=== PATIENT | female | born 1990 | race Caucasian/White ===

== ENCOUNTER → 2020-09-13 11:27 | Outpatient (CLI) | payer MEDICAID, SELFPAY ==
[2017-07-08 13:02] VITALS: BMI 26.3
[2020-09-13 14:00] LABS: Hemoglobin 14.2 g/dL (12.0-15.0); Mean Corp Hgb Conc 32.3 g/dL (32-36); Mean Corpuscular Hgb 30.1 pg (27.0-32.0); Mean Corpuscular Volume 93.2 fL (81-99); Mean Platelet Vol. 10.7 fl (6.2-12.0); Platelet Count 339 K/mm3 (150-450); RBC Distribution Width CV 13.8 % (11.6-14.6); RBC Distribution Width SD 47.2 fl (35.1-43.9); Red Blood Count 4.72 M/mm3 (4.2-5.4); White Blood Count 9.3 K/mm3 (4.4-11.0)
[2020-09-13 14:37] LABS: Prolactin 3.4 ng/mL; T4 Free Direct 0.93 ng/dL (0.76-1.46); Thyroid Stim Hormone (TSH) 0.67 uIU/mL (0.358-3.74)
== END ==
PROVIDERS: Visit Provider Obstetrics & Gynecology
DX: N93.9 Abnormal uterine and vaginal bleeding, unspecified (principal)
CPT/HCPCS: 36415; 84146; 84439; 84443; 85027

== ENCOUNTER → 2020-11-17 15:08 | Outpatient (CLI) | payer MEDICAID, SELFPAY ==
[2020-11-17 11:25] VITALS: BP 139/94; PULSE 104; RESP 16; TEMP 37.1; O2SAT 100; BMI 19.6
--- NOTE | 2020-11-17 11:28 | PCM.HP.BLA ---
History and Physical Date of Admission: 11/17/20 Surgical History and Physical Name: MINERVA BENNETT Age: 29 Date of : 1990 Minerva Bennett, a 29 year old female 3 1 2 0 3, presents for Laparoscopic tubal ligation, hysteroscopy D endometrial ablation via Farhana on November 17, 2020 at 8:45. -- Minerva Gomez is here with c/o continuous vag bleeding for months. Pt desires permanent sterilzation and endometrial ablation. All questions answered and consent signed. MEDICATIONS HISTORY: Patient is also takin. No Meds ALLERGIES: NKDA Infections - Chicken pox and RSV at age 3 w. 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 Accidents - fx tailbone age 15, trampoline accident; occas LBP since Hospitalizations - Childbirth Poppy Valve Prolapse; Review of Systems: GENERAL - Denies fever, or chills SKIN - Denies skin changes EYES - wears eye glasses EARS - Denies difficulty hearing NOSE - Denies nasal congestion or bleeding MOUTH - Denies sore throat or difficulty swallowing NECK - Denies pain or swelling RESPIRATORY - Denies shortness of breath or wheezing CARDIOVASCULAR - Denies palpitations or chest pain GASTROINTESTINAL - Denies nausea, vomiting, diarrhea, constipation GENITOURINARY - irregular bleeding MUSCULOSKELETAL - Denies joint or muscle pain NEUROLOGICAL - Denies localized numbness or weakness PSYCHIATRIC - Denies depression or anxiety ENDOCRINE - Denies heat or cold intolerance, weight loss or gain HEMATO-IMMUNOLOGIC - Denies excessive bleeding with cuts SOCIAL HISTORY: Alcohol Use - RARELY not while Smoking - Advised to quit and Smoker since 15. Smokes 1/2 PPD. Was 1 PPD. Diet - balanced Diet, caffeine > 2 drinks per day and water intake near one gal daily Lifestyle - moderate stress lifestyle Exercise - active work and Enc 20 min daily walking without stopping Seat Belt Use - always Employer - homemaker Illicit Drug Use - uses marijuana Sexual Activity - Residence - rent home Place of - [place], [place] Hours Worked - 28-35 Spouse-Sig Other Name - Pablo Bennett Spouse-Sig Other Occupation - [employer] - [employer] Spouse-Sig Other Phone No - [phone] Children Name(s) - Payam (still born February 2013), Carlos (AMS), Zi (EB, 2016), Daniel '17 Control - Depo FAMILY HISTORY: Family history of mental illness, Breast cancer, Lung cancer, Heart Disease and Hypertension. MENSTRUAL HISTORY: LMP Known?- Approximate-Month KnownAmount/Duration - 3-4 DAYS, Regularity - Irregular, LMP - 08/20/20, Age Onset Menarche - 15 PAST PREGNANCIES: Total Pregnancies - 6; Full Term Pregnancies - 3; Premature - 1; Abortions, Induced - 0; Abortions, Spontaneous - 2; Ectopics - 0; Multiple Births - 0; Living Children - 3 SURGICAL HISTORY: 1. 07/03/2016 ; Marissa Mathias M.D. - bradycardia, true knot in cord PHYSICAL EXAM BP- 122/84 Sitting, Right arm, regular cuff Weight- 121.53773 lbs Height- 66 inch BMI:19.57 CONSTITUTIONAL - NAD, well nourished, and well developed SKIN - No rash, lesions, or ulcers HEENT - Normocephalic, PERRLA, EOMI NECK - No nodes, no nuchal rigidity and thyroid normal size and texture LYMPH NODES - Palpation of lymph nodes in neck and groins within normal limits LUNGS - CTA x2 without wheezes, crackles or rales CARDIAC - Regular rate and rhythm without rubs, murmurs, or gallops ABDOMEN - Without hepatosplenomegaly, distention, masses, rebound, or guarding; normal bowel sounds; no hernias EXTREMITIES - No edema or calf tenderness NEUROLOGICAL - Cranial nerves II-XII grossly intact PSYCHIATRIC - A and O to time, place, person, mood and affect External Genital Vagina - non-tender without lesions Urethra/Urethral Meatus - non-tender Bladder - non-tender Vagina - vaginal bryan are pink and moist without loss of rugae and no evidence of atropyh Cervix - without cervical motion tenderness and has normal size and features without evident lesions Uterus - 5-6 cm in size, mobile and nontender Adnexa - clear without masses or tenderness ASSESSMENT/PLAN: 1. Abnormal Uterine And Vaginal Bleeding, Unspecified Pt with periods all month for multiple months. Does not want any further children Labs today, exam wnl. U/s with 8cm x6cm uterus. No other findings Pt educated on options medical vs surgical r/b/a. Pt elects for endometrial ablation and tubal ligation. Tubal consent discussed and signed Pt had Depo 09/2020 Pt for hysteroscopy, D, Farhana, laparoscopic b/l salpingectomy Pt takes no medications Educated on r/b/a, educated on postoperative pain, returning to work, vaginal discharge. All questions answered, consent was signed
[2020-11-17] MEDS: Lactated Ringers 1,000 ML 100 ML IV (11:33)
[2020-11-17 11:34] LABS: Internal QC Validated? YES +Cl - CLEAR BKGD; Pregnancy, Urine Negative Negative
[2020-11-17 11:40] LABS: Hematocrit 42.9 % (37-47); Hemoglobin 14.4 g/dL (12.0-15.0); Mean Corp Hgb Conc 33.6 g/dL (32-36); Mean Corpuscular Hgb 30.3 pg (27.0-32.0); Mean Corpuscular Volume 90.3 fL (81-99); Platelet Count 281 K/mm3 (150-450); RBC Distribution Width SD 46.5 fl (35.1-43.9); Red Blood Count 4.75 M/mm3 (4.2-5.4); White Blood Count 9.1 K/mm3 (4.4-11.0)
--- NOTE | 2020-11-17 12:04 | SUR.PREOP ---
surgery canceled - pt had crakers this am. dr arnold talked with pt
== END ==
PROVIDERS: PCP Obstetrics & Gynecology; Referring Provider Obstetrics & Gynecology; Visit Provider Obstetrics & Gynecology
DX: Z01.818 Encounter for other preprocedural examination (principal); Z20.822 Contact with and (suspected) exposure to COVID-19
CPT/HCPCS: 81025; 85027; 86850; 86900; 86901; 87426; J7120; J2405

== ENCOUNTER → 2022-02-01 | Outpatient (CLI) | payer MEDICAID, SELFPAY ==
[2022-02-05 01:06] LABS: Chlamydia By Nucleic Acid AMP Negative (Negative)
[2022-02-05 09:15] LABS: Gonococcus By Nucleic Acid AMP Negative (Negative)
[2022-02-05 16:10] LABS: HPV APTIMA, High Risk Negative (Negative)
== END | disposition home or self-care (01) ==
LOC: WOBLAB 11:49
PROVIDERS: PCP Obstetrics & Gynecology; Visit Provider Obstetrics & Gynecology
DX: Z34.81 Encounter for supervision of other normal pregnancy, first trimester (principal)
CPT/HCPCS: 87491; 87591; 87624; 88175; G0145

== ENCOUNTER → 2022-08-21 | Outpatient (CLI) | payer MEDICAID, SELFPAY ==
[2022-08-21 11:26] LABS: Absolute Lymphocyte Count 2.16 X10^3/uL (0.83-4.51); Absolute Neutrophil Count 4.7 X10^3/uL (2.0-7.7); Basophil# 0.06 X10^3/uL; Basophil% 0.8 % (0-1); Eosinophil# 0.09 X10^3/uL; Eosinophils% 1.2 % (0-5); Hematocrit 38.4 % (37-47); Hemoglobin 12.9 g/dL (12.0-15.0); Lymphocyte # 2.16 X10^3/ul (0.83-4.51); Lymphocyte % 28.1 % (19-41); Mean Corp Hgb Conc 33.6 g/dL (32-36); Mean Corpuscular Hgb 30.1 pg (27.0-32.0); Mean Corpuscular Volume 89.7 fL (81-99); Mean Platelet Vol. 9.9 fl (6.2-12.0); Monocyte# 0.65 X10^3/uL; Monocyte% 8.5 % (0-10); NRBC Flagged by Analyzer 0 % (0-5); Neutrophil # 4.72 X10^3/uL (2.7-7.7); Neutrophil % 61.3 % (47-70); Platelet Count 286 K/mm3 (150-450); RBC Distribution Width CV 13.9 % (11.6-14.6); RBC Distribution Width SD 45.7 fl (35.1-43.9); Red Blood Count 4.28 M/mm3 (4.2-5.4); White Blood Count 7.7 K/mm3 (4.4-11.0)
[2022-08-21 12:37] LABS: HIV - WCH Non-Reactive (Nonreactive); Hepatitis B Surface Antigen Non-Reactive (Nonreactive); Hepatitis C Antibody Non-Reactive (Nonreactive); Rubella IgG Reactive (Nonreactive); Syphilis Antibodies Non-reactive
[2022-08-22 09:57] LABS: V-Zoster IgG (Immunity) 628 index (Immune >165)
== END | disposition home or self-care (01) ==
LOC: WOBLAB 10:55
PROVIDERS: PCP Nurse Practitioner Family; Visit Provider Obstetrics & Gynecology
DX: Z34.81 Encounter for supervision of other normal pregnancy, first trimester (principal)
CPT/HCPCS: 36415; 85025; 86703; 86762; 86780; 86787; 86803; 87086; 87088; 87340

== ENCOUNTER → 2022-12-13 | Outpatient (CLI) | payer MEDICAID, SELFPAY ==
[2022-12-13 11:43] LABS: Absolute Lymphocyte Count 1.84 X10^3/uL (0.83-4.51); Absolute Neutrophil Count 9.5 X10^3/uL (2.0-7.7); Basophil# 0.04 X10^3/uL; Basophil% 0.3 % (0-1); Eosinophil# 0.13 X10^3/uL; Eosinophils% 1.1 % (0-5); Hematocrit 35.9 % (37-47); Hemoglobin 12.3 g/dL (12.0-15.0); Lymphocyte # 1.84 X10^3/ul (0.83-4.51); Mean Corp Hgb Conc 34.3 g/dL (32-36); Mean Corpuscular Hgb 31.6 pg (27.0-32.0); Mean Corpuscular Volume 92.3 fL (81-99); Mean Platelet Vol. 10.2 fl (6.2-12.0); Monocyte# 0.69 X10^3/uL; Monocyte% 5.6 % (0-10); NRBC Flagged by Analyzer 0 % (0-5); Neutrophil % 77.6 % (47-70); Platelet Count 298 K/mm3 (150-450); RBC Distribution Width CV 13.5 % (11.6-14.6); RBC Distribution Width SD 45.2 fl (35.1-43.9); Red Blood Count 3.89 M/mm3 (4.2-5.4); White Blood Count 12.3 K/mm3 (4.4-11.0)
[2022-12-13 11:52] LABS: Glucose Challenge Gest 1H 50g 102 mg/dL (70-140)
[2022-12-13 12:18] LABS: Syphilis Antibodies Non-reactive
== END | disposition home or self-care (01) ==
LOC: WOBLAB 10:29
PROVIDERS: PCP Nurse Practitioner Family; Visit Provider Obstetrics & Gynecology
DX: Z34.82 Encounter for supervision of other normal pregnancy, second trimester (principal); Z3A.00 Weeks of gestation of pregnancy not specified
CPT/HCPCS: 36415; 82950; 85025; 86780

== ENCOUNTER → 2023-02-21 | Outpatient (CLI) | payer MEDICAID, SELFPAY | END | disposition home or self-care (01) | LOC: LABSPEC 12:00 | PROVIDERS: PCP Nurse Practitioner Family; Visit Provider Obstetrics & Gynecology | DX: Z36.85 Encounter for antenatal screening for Streptococcus B (principal) | CPT/HCPCS: 87081 ==

== ENCOUNTER → 2023-02-28 | Outpatient (CLI) | payer MEDICAID, SELFPAY ==
[2023-02-28 12:21] LABS: Hematocrit 36.8 % (37-47); Hemoglobin 12.3 g/dL (12.0-15.0); Mean Corp Hgb Conc 33.4 g/dL (32-36); Mean Corpuscular Hgb 30.9 pg (27.0-32.0); Mean Corpuscular Volume 92.5 fL (81-99); Mean Platelet Vol. 10.9 fl (6.2-12.0); Platelet Count 311 K/mm3 (150-450); RBC Distribution Width CV 13.5 % (11.6-14.6); RBC Distribution Width SD 46.3 fl (35.1-43.9); Red Blood Count 3.98 M/mm3 (4.2-5.4); White Blood Count 13.7 K/mm3 (4.4-11.0)
== END | disposition home or self-care (01) ==
LOC: WOBLAB 11:15
PROVIDERS: PCP Nurse Practitioner Family; Visit Provider Obstetrics & Gynecology
DX: Z34.83 Encounter for supervision of other normal pregnancy, third trimester (principal); Z3A.00 Weeks of gestation of pregnancy not specified
CPT/HCPCS: 36415; 85027

== ENCOUNTER 2023-03-13 04:50 | Inpatient (IN) | payer MEDICAID, SELFPAY ==
[2023-03-13] VITALS (19 sets, daily range): BP systolic 91–118; BP diastolic 46–83; PULSE 67–96; RESP 16–18; TEMP 35.9–36.6; O2SAT 96–100; BMI 23.8
[2023-03-13] MEDS: Lactated Ringers 1,000 ML 999 ML IV (05:35)
[2023-03-13 05:51] LABS: Absolute Lymphocyte Count 2.38 X10^3/uL (0.83-4.51); Absolute Neutrophil Count 10.1 X10^3/uL (2.0-7.7); Basophil# 0.05 X10^3/uL; Basophil% 0.4 % (0-1); Eosinophil# 0.27 X10^3/uL; Eosinophils% 1.9 % (0-5); Hematocrit 37.9 % (37-47); Hemoglobin 12.5 g/dL (12.0-15.0); Lymphocyte # 2.38 X10^3/ul (0.83-4.51); Lymphocyte % 17.2 % (19-41); Mean Corpuscular Hgb 30.6 pg (27.0-32.0); Mean Corpuscular Volume 92.7 fL (81-99); Mean Platelet Vol. 10.1 fl (6.2-12.0); Monocyte# 0.97 X10^3/uL; NRBC Flagged by Analyzer 0 % (0-5); Neutrophil # 10.08 X10^3/uL (2.7-7.7); Neutrophil % 72.7 % (47-70); Platelet Count 294 K/mm3 (150-450); RBC Distribution Width CV 13.9 % (11.6-14.6); RBC Distribution Width SD 47.2 fl (35.1-43.9); Red Blood Count 4.09 M/mm3 (4.2-5.4); White Blood Count 13.9 K/mm3 (4.4-11.0)
[2023-03-13] MEDS: Acetaminophen 500 MG Tablet 1000 MG PO ×3 (06:04→20:51)
--- NOTE | 2023-03-13 06:38 | PCM.HP.BLA ---
History and Physical Date of Admission: 03/13/23 Chief complaint: Repeat section bilateral tubal ligation History present illness: 32-year-old G8, P4 at 39 weeks and 1 day with JENNIFER 03/19/2023 arrives for repeat section bilateral tubal ligation. Denies headache, vision changes, chest pain, shortness of breath, nausea vomit, right upper quadrant pain. Patient states good movement. is complicated by smoking, history of section, history of IUFD Obstetric history: G1: 35-week male IUFD G2: 38-week male 6 pounds 7 ounces G3: 39-week low transverse section nonreassuring heart tones male 7 pounds 8 ounces G4: 39-week female G5: SAB G6: SAB G7: SAB G8: Current Past medical history: None Medications: vitamin Past surgical history: section Allergies: No known drug allergies Social history: Half pack per day smoker, denies alcohol or drug use Family history: Denies history DVT or PE Review of systems: Besides above pertinent positives a full review of systems was performed and found to be negative Physical exam: Vitals: Blood pressure 108/71 pulse 91 respiratory rate 16 temperature 97.0 ?F SPO2 98% on room air General: Normal-appearing no acute distress HEENT: Normocephalic/atraumatic no cervical and adenopathy Cardiac/respiratory: No use of accessory muscles, nonlabored breathing Abdomen: Soft, nontender, gravid Extremities: No peripheral edema normal peripheral pulses Psych: Normal affect and demeanor nonpressured speech Labs: White blood cell count 13.9 hemoglobin 12.5 hematocrit 37.9% platelets 294. Blood type a positive antibody negative Assessment and plan: 32-year-old G8, P4 at 39 weeks and 1 day for repeat section bilateral tubal ligation. Patient understands risk of the procedure include but are not limited to visceral or vascular injury, prolonged hospitalization, blood loss need for transfusion, reoperation. Patient state understanding wish to proceed. All questions were answered and consent was signed. For repeat section bilateral tubal ligation now. 2 g Ancef preop
[2023-03-13] MEDS: Lactated Ringers 1,000 ML 150 ML IV (06:49)
[2023-03-13] MEDS: Sodium Citrate/Citric Acid 30 ML UDC PO (07:01)
[2023-03-13] MEDS: Cefazolin 2 GM in 0.9% Normal Saline 100 ML IV (07:06)
--- NOTE | 2023-03-13 07:28 | FALS_PTH ---
PATIENT: MINERVA BENNETT LOC: WP U#:[id number] AGE/SX: ROOM: WP008 RE03/13/[address]: Dr. Guerrero Evans MD : 1990 BED: 1 DIS: 03/14/2023 SPEC #: [id number] RECD: 03/13/23 09:08 STATUS: SALAZAR REVeronica #: [id number] BROOKE: 03/13/23 07:[address]: Guerrero Evans DEPT: SURGICAL PATHOLOGY RECD BY: Carito Mayne ENTERED: 03/13/23 10:56 SP TYPE: FALL TUBES OTHR DR: Isabel Mckeon, STRAW HAT PLUNGER OPERATOR-C Tissues: Fallopian tube Procedures: Surgery Specimen Level II HEADER OPERATION: Tubal ligation PRE-OP DIAGNOSIS: Sterilization TISSUE SUBMITTED: Fallopian tubes MICROSCOPIC DIAGNOSIS Bilateral fallopian tubes, salpingectomy: Bilateral fallopian tubes, no pathologic diagnosis. PEG:luiza 03/14/2023 MICROSCOPIC DESCRIPTION Slides are reviewed. GROSS DESCRIPTION Received in fixative is one container labeled with the patient's name and designated bilateral fallopian tubes, suture on right. The specimen consists of bilateral fallopian tubes including fimbrial ends measuring 6.5 cm in length and 0.6 cm in diameter and left fallopian tube measures 8.0 cm in length and 0.5 cm in diameter. Sections reveal unremarkable cut surfaces. Siding Coreboard Inspector sections are submitted in two cassettes as follows: 1 - right fallopian tube, 2 - left fallopian tube. / SJ:luiza 03/13/2023 TC:4 CPT: 13339 x2
--- NOTE | 2023-03-13 07:57 | EX.PCM.OBRPT ---
Details Operative Information Date of Procedure: 03/13/23 Pre-Operative Diagnosis: Term, history of section, desires permanent sterilization Post-Operative Diagnosis: Term, history of section, desires permanent sterilization remediation consultant #1: Emanuel Riojas Findings Description of Procedure: Procedure: Repeat low transverse section via Pfannenstiel incision, bilateral salpingectomy Surgeon: Guerrero Evans MD Anesthesia: Spinal EBL: 600 cc Urine output: 500 cc IV fluids: 1000 cc Complications: None Specimen: Bilateral fallopian tubes Findings: Female infant in vertex position Apgars 8/9. Normal uterus, tubes, and ovaries. Consent: Patient with a history of section at term and desires permanent sterilization elects for repeat section Via Pfannenstiel incision and bilateral salpingectomy. Patient understands risk of the procedure include but are not limited to visceral or vascular injury, prolonged hospitalization, blood loss need for transfusion, reoperation. Patient state understanding and wished to proceed. All questions were answered and consent was signed. Procedure: Patient was brought back to the OR where spinal anesthesia was found to be adequate. Patient was repaired and draped in a supine position with leftward tilt. A Pfannenstiel incision was made at the skin with a scalpel. The incision was carried down to the fascia with a scalpel. The fascia was excised and extended laterally. Rectus muscle was dissected bluntly. Rectus muscle was dissected at the midline down to the level of the pubic symphysis. Preperitoneal fat tissue was noted peritoneum was entered bluntly. Peritoneum was extended superiorly and inferiorly with good visualization of bladder. Bladder blade was inserted and vesicouterine peritoneum was identified. Low transverse hysterotomy was made. Hand was placed in the incision and gentle fundal pressure was applied once the head was brought into the incision and the bladder blade was removed. Head and shoulders were delivered with ease. Cord was clamped and cut. Baby handed off to nursing. Placenta was delivered via cord traction and fundal massage. IV oxytocin was initiated in order to facilitate uterine contractions. Uterus was exteriorized and wiped out with dry laparotomy sponge in order to remove remaining placental membranes. Uterus was closed in a continuous running fashion. Hemostasis was achieved with the Bovie. Good hemostasis was noted. Right fallopian tube was identified to the fimbria and the mesosalpinx was cut and cauterized with the LigaSure device, right fallopian tube was transected at the cornua and sent to pathology. Good hemostasis was noted. In similar fashion the left fallopian tube was identified to the fimbria and the mesosalpinx was cut and cauterized with LigaSure device, left loping tube was transected at the cornua and sent to pathology. Good hemostasis was noted bilaterally. Uterus was placed back in the abdominal cavity incision was reinspected, good hemostasis was noted. [place] was placed over the hysterotomy. Good hemostasis was noted. Fascia was closed in a continuous running fashion with PDS suture. Subcutaneous irrigation was performed and hemostasis was achieved with the Bovie. Skin was closed in a subcuticular fashion. Good hemostasis was noted. All counts were correct x2. Patient tolerated procedure well and was brought to recovery in stable condition.
[2023-03-13] MEDS: Oxytocin 15 Units/NS 250ml 15 UNITS/250 ML IV.SOLN 83 UNITS IV (08:15)
[2023-03-13] MEDS: Ketorolac 30 MG/ML Syringe IV ×3 (08:46→20:50)
[2023-03-13 09:07] LABS: Syphilis Antibodies Non-reactive
[2023-03-13 09:08] LABS: Pathology Specimen OB SEE PATHOLOGY REPORT
[2023-03-13] MEDS: Lactated Ringers 1,000 ML 100 ML IV (12:11)
[2023-03-13] MEDS: 0.9% Saline Lock 10 ML Syringe IV ×2 (14:45→20:50)
[2023-03-13] MEDS: SimETHICONE 80 MG Chewable Tablet PO (20:51)
[2023-03-13] MEDS: Enoxaparin 40 MG/0.4 ML Syringe SC (20:51)
[2023-03-14] VITALS: BP 105/71; PULSE 86; RESP 17; TEMP 36.4; O2SAT 97
[2023-03-14 03:00] VITALS: BP 93/52; PULSE 75; RESP 15; TEMP 36.4; O2SAT 100
[2023-03-14] MEDS: Acetaminophen 500 MG Tablet 1000 MG PO ×2 (03:45→10:48)
[2023-03-14] MEDS: Ketorolac 30 MG/ML Syringe IV (03:45)
[2023-03-14] MEDS: 0.9% Saline Lock 10 ML Syringe IV (03:46)
[2023-03-14 05:21] LABS: Hematocrit 32.6 % (37-47); Hemoglobin 10.8 g/dL (12.0-15.0); Mean Corp Hgb Conc 33.1 g/dL (32-36); Mean Corpuscular Hgb 30.9 pg (27.0-32.0); Mean Corpuscular Volume 93.1 fL (81-99); Mean Platelet Vol. 9.9 fl (6.2-12.0); Platelet Count 257 K/mm3 (150-450); RBC Distribution Width CV 13.7 % (11.6-14.6); RBC Distribution Width SD 46.5 fl (35.1-43.9)
--- NOTE | 2023-03-14 07:37 | DCINST_ITS ---
Discharge Instructions Diet Discharge Diet: No restrictions Activity Discharge Activity: Return to Normal Activity, May Drive, May Shower and - (No tub baths for 2 weeks) May resume sexual activity in: 6-8 weeks Lifting Restrictions: No lifting over 25 pounds for 2-3 Dressing / Incision Call your doctor if your incision/area has: Continuous Slow Oozing and Foul Smelling Discharge Call your doctor if you observe: Fever of 101 or Higher, Shortness of breath and Chest pain Follow Up Care Please Follow Up With: Guerrero Evans MD When: 2 weeks postoperatively Test Results: Test results from this visit will be discussed in further detail at your follow- up appointment, if applicable. Discharge Plan Admission Admit Date/Time: 03/13/23 04:50 Attending Provider: Guerrero Evans Primary Care Provider: Isabel Mckeon NP Discharge Orders/Prescriptions Prescriptions: No Action fluoxetine [Prozac] 10 mg Tablet 10 mg PO DAILY Referrals / Follow Up: Isabel Mckeon NP, PACKING MACHINE PILOT CAN ROUTER-C [Primary Care Provider] - Disposition Discharge Orders: Discharge Patient (Routine); Ordered 03/14/23 Ordered By: Dr. Guerrero Evans
--- NOTE | 2023-03-14 07:37 | PCM.PN.OB ---
Subjective Subjective No overnight complaints. Pain well controlled Objective Data Objective Data Vital Signs: Vital Signs Temp Pulse Resp BP Pulse Ox O2 Del Method 97.6 F L 75 15 93/52 L 100 Room Air 03/14/23 03:00 03/14/23 03:00 03/14/23 03:00 03/14/23 03:00 03/14/23 03:00 03/14/23 03:00 Oxygen Delivery Method Room Air Weight: 152 lb Body Mass Index (BMI) 23.8 Intake & Output: Intake and Output for Last 24 Hours 03/12/23 03/13/23 03/14/23 23:59 23:59 23:59 Intake Total 2577.5 / 2577.5 Output Total 1900 / 1900 Balance 677.5 / 677.5 Lab / Micro Data 03/14/23 05:10 Labs: Laboratory Results - last 24 hr 03/13/23 05:35: Syphilis Total Ab Non-reactive 03/14/23 05:10: WBC 15.0 H, RBC 3.50 L, Hgb 10.8 L, Hct 32.6 L, MCV 93.1, MCH 30.9, MCHC 33.1, RDW Std Deviation 46.5 H, RDW Coeff of Stefan 13.7, Plt Count 257, MPV 9.9 Physical Exam Const alert, oriented x3, no apparent distress, average body habitus, healthy appearing and well nourished HEENT normocephalic and moist oral mucous membranes Eyes PERRL Neck full ROM Resp normal respiratory effort, no retractions and no use of accessory muscles GI GI Narrative: Soft, nontender, bandage clean dry and intact Extremity normal to inspection and full ROM Neuro moves all extremities and no focal motor deficits Psych mental status grossly normal, affect normal, speech normal and activity/motor behavior normal Assessment & Plan (1) delivery delivered: PLAN: Postop day 1 status post repeat section bilateral tubal ligation. Pain well controlled. Okay to discharge home today if okay with attendant child activity
[2023-03-14 10:33] VITALS: BP 100/64; PULSE 97; RESP 16; TEMP 36.6; O2SAT 96
[2023-03-14] MEDS: Ibuprofen 600 MG Tablet PO (10:47)
--- NOTE | 2023-03-14 15:20 | CASEMGMT ---
Social Work Assessment Labor and Delivery Unit Patient Address:[address] [place] [address] [address] [id number] Phone number: [phone] Date of Referral: 03/13/23 Time of Referral:? 529 Referred By: Guerrero Evans Date of Intervention: ?03/14/23? Time of Intervention:? 1000 Reason for Referral:? Mental Health- MOB parents former addicts Sw completed chart review and acknowledges social work consult. Sw presented to bedside, introduced self to mother of baby (MOB- Bernadette) and father of baby (FOB- Pablo). Sw explained reason for social work involvement and completed psychosocial assessment with both parents. Sw asked FOB to step out of room momentarily so that MOB could complete the [place] Depression Scale. FOB left room respectfully when necessary. History obtained from: medical records, MOB and FOB??? Household composition: Parents report that currently residing in their home is SLUY, FOB, their three other children (Carlos- 9y/o, Zi- 6y/0 and Briston- 5 y/o) and now baby girl. Parents deny that anyone else lives in the home with them at this time. Patient's parent/guardian status:?MOB and FOB are . MOB states that they have been together for 11 years. Parents state that they were introduced to each other by FOB's nephew and other mutual friends. When meeting with MOB privately she denies any concerns of domestic violence or intimate partner violence. Medical History: SULY is 9, para 3- now 5. MOB states that her first ended in a loss at 38 weeks gestation, however when her baby was born he was measuring to be only 35 weeks. MOB states that she then had [place]. MOB states that when her delivery with her next baby did not go well. MOB states that when she had Zi she had to be intubated for an emergency . MOB states that she is able to recognize now that following his she experienced extreme depression. MOB states that she really struggled at that time to kaiser with baby and depended a lot on FOB to help her. MOB states that then she had Briston and that was a very healing , delivery and overall baby. MOB states that Bristbarbi breast fed well and was a very happy and pleasant baby. Following Briston MOB experienced three miscarriages. MOB states that they were all around 12-13 weeks gestation. MOB states that she had several appointments to have a tubal, however at the last appointment it got cancelled last minute as she was getting prepped due to another delivery emergency. MOB states that it wasn't long after that appointment that she found out she was with this new baby. MOB delivered baby girl via scheduled in order for tubal procedure to be completed at the same time. Baby girl, named Ramos Monique, was born on 03/13/23 at 39 weeks gestation. Ramos weighed only 5lb 11oz and her apgars were 8 and 9 at one and five minutes of life. MOB states that baby is breast feeding well and there are no concerns at this time. Educational Status: MOB states that she completed 11th grade. FOB states that he graduated from high school. Financial Status: BRETT is gainfully employed outside of the home at this time. BRETT works for a [employer] company and states that he is able to take some vacation time now that the baby has been born. 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 MOB states that she is considering doing something different when she is ready to return to work. Infant Supplies:?MOB states that they have obtained all the necessary baby supplies including: car seat, safe sleep space, clothes, diapers, wipes and a breast pump. MOB states that she does not have a lot of preemie clothes, and due to baby being born so small those would fit baby best. Lambert looked at supplies sw has and could not find any clothes that small. Lambert informed bedside RN who stated she would also look for some. Childcare/Caregiver(s):?MOB states that she will be the primary caregiver to baby, with the help of FOB when he is not at work. MOB states that when both parents are working she has family that will be able to watch baby. Transportation:?? Both parents have their drivers license and reliable transportation. No transportation barriers at this time. Programs/Agencies Involved: MOB states that they are over income at this time for financial supports through community agencies. Sw encouraged MOB to look into getting connected to [facility] now that baby has been born. MOB was receptive to this recommendation. ??? Children Services/Legal Issues:??While completing chart review, lambert notes that SULY was involved with children services following the of Zi. MOB identified at that time that she had smoked marijuana during . MOB worked a case plan with them and they closed. No involvement since that time. MOB denies substance use at this time. No need or concerns to make referral to Children Services. ? Behavioral Health Issues: ??Mental Health History:??BRETT denies history of mental health. MOB states that she has not officially been diagnosed with any mental health diagnoses. MOB states that she did experience depression following the of Zi. MOB can identify that her delivery of Zi is not what she expected it to be. MOB states that at that time she was very depressed and did not have desire or interest to do anything. MOB denies SI history or current SI. SULY completed [place] Depression Scale, her score was a 4. Lambert educated SULY on her results and encouraged her to get connected to mental health supports during her period. MOB was receptive to this recommendation.? Substance Use History:?SULY has history of THC use. MOB denies use for several years. MOB states that she smokes daily. Lambert educated SULY to not smoke and hold baby, encouraged her to change her clothes and wash hands. MOB states that smoking is not allowed in her home. Family History:??MOB states that both of her parents have substance use history. MOB states that her dad has been sober for 5 years and has now devoted his life to helping others get sober. MOB states that her father is now a store operations specialist and preaches. MOB states that her mom has bouts of sobriety, and supposedly is sober now. MOB states that she and her family do not associate with her mother due to her ongoing issues with substance use. ??? Drug Screens: ?No urine screens observed in chart review for this . ? Family/Social Stressors:? MOB denies any stressors or concerns. MOB states that having three other children at home has been challenging to get them to and from school and all of their activities. MOB states that BRETT's niece has been helping them with all of the running around. Support Systems: MOB states that BRETT is her biggest support person. MOB states that her father and his ex- are also her biggest supports, along with BRETT's niece, October. Depression/Shaken Baby/Safe Sleeping:? Sw educated parents on signs and symptoms of baby blues and depression. Sw encouraged parents to talk about things that FOB can do to be a support to MOB during this period. Parents were welcoming of this recommendation. Sw eduated parents on shaken baby prevention and ABCs of safe sleep. Parents expressed understanding. ASSESSMENT:? Parents were very talkative and open regarding their history and relationship. Parents talked openly about their losses and the journey they have been on with their babies. Parents were receptive to advice and support that lambert provided. Parents have supports in place, all the things they need for baby and are looking forward to being discharged from hospital. PLAN:? MOB and baby to be discharged when medically ready. ?No other services requested or indicated. Kyrie Segura, PLANT SCIENTIST, ATTENDANT [employer]
== END 2023-03-14 14:05 | disposition home or self-care (01) | DRG 539 ==
PROVIDERS: Admitting Provider Obstetrics & Gynecology; PCP Nurse Practitioner Family; Visit Provider Obstetrics & Gynecology
PROC: 10D00Z1 Extraction of Products of Conception, Low, Open Approach (ICD-10-PCS; CPT 59514; principal; 2023-03-13 07:15)
DX: O34.211 Maternal care for low transverse scar from previous cesarean delivery (principal); F17.200 Nicotine dependence, unspecified, uncomplicated; F53.0 Postpartum depression; F41.9 Anxiety disorder, unspecified; Z37.0 Single live birth; O99.334 Smoking (tobacco) complicating childbirth; O99.344 Other mental disorders complicating childbirth; Z3A.39 39 weeks gestation of pregnancy; Z79.899 Other long term (current) drug therapy; Z87.59 Personal history of other complications of pregnancy, childbirth and the puerperium; Z30.2 Encounter for sterilization
CPT/HCPCS: 59025; 59050; 85025; 85027; 86780; 86850; 86900; 86901; 88302; 99221; J7120; A4216; G0378